=== PATIENT | male | born 1955 | race Caucasian/White ===

== ENCOUNTER → 2025-02-20 07:49 | Outpatient (REF) | payer OTHER, SELFPAY | LOC: PET 07:49 | PROVIDERS: ATTENDING PHYSICIAN Internal Medicine | DX: R91.1 Solitary pulmonary nodule (principal) | CPT/HCPCS: 78815; A9552 ==

== ENCOUNTER → 2025-05-06 09:51 | Outpatient (REF) | payer OTHER, SELFPAY | LOC: RAD 09:51 | PROVIDERS: ATTENDING PHYSICIAN Internal Medicine; FAMILY PHYSICIAN Family Medicine; REFERRING PHYSICIAN Thoracic Surgery (Cardiothoracic Vascular Surgery) | DX: I71.03 Dissection of thoracoabdominal aorta (principal) | CPT/HCPCS: 71250 ==

== ENCOUNTER → 2025-05-14 15:42 | Outpatient (REF) | payer OTHER, SELFPAY | LOC: RAD 15:42 | PROVIDERS: ATTENDING PHYSICIAN Thoracic Surgery (Cardiothoracic Vascular Surgery); FAMILY PHYSICIAN Family Medicine | DX: I71.03 Dissection of thoracoabdominal aorta (principal) | CPT/HCPCS: 71275; 74174; Q9967 ==

== ENCOUNTER → 2025-05-31 14:45 | Outpatient (REF) | payer OTHER, SELFPAY | LOC: RCS 14:45 | PROVIDERS: ATTENDING PHYSICIAN Internal Medicine Cardiovascular Disease; FAMILY PHYSICIAN Family Medicine | DX: I50.31 Acute diastolic (congestive) heart failure (principal); I71.00 Dissection of unspecified site of aorta | CPT/HCPCS: 93306 ==